=== PATIENT | female | born 1960 | race Caucasian/White ===

== ENCOUNTER 2018-04-18 12:39 | Emergency (ER) | payer BC, OTHER ==
[2018-04-18] MEDS ORDERED: Lidocaine 2% PF * 5 ML VIAL INJ ONE (12:50)
--- NOTE | 2018-04-18 13:01 | UC ---
Laceration HPI - HPI Summary HPI Summary: 57 yo female presents with laceration. About 2 hours [employer] she was handling a utility knife and dropped it - it fell onto her LEFT thigh and she sustained a laceration above her knee. She bandaged the wound and came to urgent care. Last tetanus was 2012. - History Of Current Complaint Chief Complaint: UCLaceration Stated Complaint: LEG LAC Time Seen by Provider: 04/18/18 12:50 Hx Obtained From: Patient Laceration Location: Thigh Mechanism Of Injury: Sharp Trauma Severity: Mild Pain Intensity: 2 Pain Scale Used: 0-10 Numeric - Allergies/Home Medications Allergies/Adverse Reactions: Allergies Allergy/AdvReac Type Severity Reaction Status Date / Time Penicillins Allergy Hives Verified 04/18/18 12:58 Sulfa (Sulfonamide Allergy Hives Verified 04/18/18 12:58 Antibiotics) cefol Allergy Hives Uncoded 04/18/18 12:58 Home Medications: Home Medications Zolpidem Tartrate [Ambien] 5 mg PO DAILY 04/18/18 [History Confirmed 04/18/18] PMH/Surg Hx/FS Hx/Imm Hx - Additional Past Medical History Additional PMH: Insomnia Previously Healthy: Yes - Surgical History Surgical History: None Surgery Procedure, Year, and Place: broken arm. uterine polyps - Family History Known Family History: Positive: None - Social History Occupation: Employed Full-time Lives: With Family Alcohol Use: None Substance Use Type: None Smoking Status (MU): Never Smoked Tobacco Review of Systems Constitutional: Negative Skin: Other - Laceration left thigh Respiratory: Negative Cardiovascular: Negative Neurovascular: Negative Neurological: Negative Psychological: Negative All Other Systems Reviewed And Are Negative: Yes Physical Exam - Summary Physical Exam Summary: GENERAL: NAD. WDWN. No pain distress. SKIN: LEFT thigh: 1.5cm linear laceration 4mm depth. No FB. No streaking, bleeding, or drainage. NECK: Supple. Nontender. No lymphadenopathy. CHEST: No accessory muscle use. Breathing comfortably and in no distress. CV: RRR. Without m/r/g. MSK: FROM left knee. NEURO: Alert. CN II-XII grossly intact. PSYCH: Age appropriate behavior. Triage Information Reviewed: Yes Vital Signs: Initial Vital Signs Temp 97.8 F 04/18/18 12:53 Pulse 62 04/18/18 12:53 Resp 18 04/18/18 12:53 BP 122/65 04/18/18 12:53 Pulse Ox 100 04/18/18 12:53 Laceration Repair - Laceration Repair 1 Description: Linear Laceration Size After Repair: Length (cm) - 1.5 Modified For Repair: No Type Injection: Local Anesthesia Used: 2.0% Lido Irrigation With Pressure Irrigation Device: Yes Closure Material: Sutures Closure Method: Single Layer Suture Of: Skin Suture Type: Prolene Laceration Course/Dx - Course/Dx Course Of Treatment: A time out was performed, witnessed, and signed. The area was irrigated with 250mL sterile saline. 2mL of 2% lidocaine without epi was administered and good anesthetization was achieved. In the usual sterile fashion , FOUR 5-0 prolene interrupted sutures were placed. The wound was bandaged with telfa. Pt tolerated procedure well. tdap was updated today - Differential Dx - Laceration/Wound Provider Diagnoses: Laceration left thigh Discharge - Sign-Out/Discharge Documenting (check all that apply): Discharge/Admit/Transfer - Discharge Plan Condition: Stable Disposition: HOME Patient Education Materials: Care For Your Stitches (ED) Referrals: Fatou Ritchie MD [Primary Care Provider] - Additional Instructions: If you develop a fever, shortness of breath, chest pain, new or worsening symptoms - please call your PCP or go to the ED. 1) Please keep the area bandaged, clean, dry, and intact for the next 24- 48hours. 2) If you develop a fever, colored or thick discharge, increased pain or swelling - please call your PCP or go to the ED. 3) Please return in 10 days to have your FOUR sutures removed. - Billing Disposition and Condition Condition: STABLE Disposition: Home
[2018-04-18] MEDS ORDERED: Tetan/Diph/Pertus SYR(Tdap)* 0.5 ML SYR(BOOSTRIX) use SYR IM ONE (13:04)
== END 2018-04-18 13:40 | disposition home or self-care (01) ==
LOC: UCEAST 12:39
DX: S71.112A Laceration without foreign body, left thigh, initial encounter (principal); W26.0XXA Contact with knife, initial encounter; Y93.9 Activity, unspecified; Y92.9 Unspecified place or not applicable; Z23 Encounter for immunization; Z88.0 Allergy status to penicillin; Z88.2 Allergy status to sulfonamides; Z88.8 Allergy status to other drugs, medicaments and biological substances
CPT/HCPCS: 12001; 90471; 90715; 99211; G0463